=== PATIENT | male | born 1985 | race Caucasian/White ===

== ENCOUNTER 2019-03-09 17:38 | Emergency (ER) | payer OTHER ==
[2019-03-09 18:32] LABS: Bilirubin Negative (Negative); Blood, Urine Negative (Negative); Clarity Clear (Clear); Glucose, Urine (Dipstick) Normal (Negative); Leukocyte Negative Leu/uL (Negative); Nitrite Negative (Negative); Protein, Urine (Dipstick) Negative (Neg-Trace); Urobilinogen Normal mg/dL (Less than 2)
[2019-03-09] MEDS ORDERED: Fentanyl 100 MCG/2 ML VIAL ONE (19:07)
== END 2019-03-09 19:00 | disposition home or self-care (01) ==
LOC: ERS 17:38
DX: N50.811 Right testicular pain (principal)
CPT/HCPCS: 81003; 99284; J3010